=== PATIENT | male | born 1960 | race Hispanic/Latino ===

== ENCOUNTER 2019-10-09 08:12 | Emergency (ER) | payer MEDICARE ==
[2019-10-09] MEDS ORDERED: CYCLOBENZAPRINE HCL 10 MG TABLET ONE (08:50)
[2019-10-09] MEDS ORDERED: KETOROLAC TROMETHAMINE 60 MG/2 ML VIAL ONE (08:50)
== END 2019-10-09 11:22 | disposition home or self-care (01) ==
LOC: EDH 08:12
DX: G89.29 Other chronic pain (principal); M54.5 Low back pain; Z72.0 Tobacco use
CPT/HCPCS: 72170; 96372; 99284; J1885